=== PATIENT | female | born 1995 ===

== ENCOUNTER → 2023-09-09 16:07 | Outpatient (CLI) | payer BC, SELFPAY ==
[2023-09-09 18:23] LABS: Urine N gonorrhoeae NOT DETECTED
[2023-09-09 18:24] LABS: Urine Chlamydia NOT DETECTED
== END ==
PROVIDERS: Referring Provider Obstetrics & Gynecology; Visit Provider Obstetrics & Gynecology
DX: Z11.3 Encounter for screening for infections with a predominantly sexual mode of transmission (principal)
CPT/HCPCS: 87491; 87591